=== PATIENT | female | born 1975 | race Native Hawaiian/Other Pacific Islander ===

== ENCOUNTER 2019-11-12 08:05 | Outpatient (CLI) | payer BC | END 2019-11-12 20:47 | disposition home or self-care (01) | LOC: NM 08:05 | DX: R10.12 Left upper quadrant pain (principal); R11.0 Nausea ==

== ENCOUNTER 2020-03-27 14:26 | Outpatient (CLI) | payer BC | END 2020-03-27 20:10 | disposition home or self-care (01) | LOC: MRI 14:26 | DX: N83.291 Other ovarian cyst, right side (principal) | CPT/HCPCS: A9576 ==

== ENCOUNTER 2020-11-06 08:30 | Outpatient (CLI) | payer BC | END 2020-11-06 21:47 | disposition home or self-care (01) | LOC: MAMMO 08:30 | PROVIDERS: ATTEND Obstetrics & Gynecology | DX: Z12.31 Encounter for screening mammogram for malignant neoplasm of breast (principal) ==

== ENCOUNTER 2020-11-21 11:01 | Outpatient (CLI) | payer BC | END 2020-11-21 19:27 | disposition home or self-care (01) | LOC: US 11:01 | PROVIDERS: ATTEND Obstetrics & Gynecology | DX: R92.2 Inconclusive mammogram (principal) ==

== ENCOUNTER 2021-04-28 08:04 | Outpatient (CLI) | payer BC | END 2021-04-28 20:31 | disposition home or self-care (01) | LOC: CT 08:04 | PROVIDERS: ATTEND Nurse Practitioner | DX: J32.0 Chronic maxillary sinusitis (principal); J32.2 Chronic ethmoidal sinusitis ==

== ENCOUNTER 2021-05-15 09:25 | Outpatient (CLI) | payer BC | END 2021-05-15 21:41 | disposition home or self-care (01) | LOC: CT 09:25 | PROVIDERS: ATTEND Nurse Practitioner Family | DX: R10.84 Generalized abdominal pain (principal); R14.0 Abdominal distension (gaseous); R11.0 Nausea | CPT/HCPCS: Q9963 ==

== ENCOUNTER 2022-07-26 09:05 | Outpatient (CLI) | payer BC | END 2022-07-26 19:34 | disposition home or self-care (01) | LOC: MAMMO 09:05 | PROVIDERS: ATTEND Obstetrics & Gynecology | DX: Z12.31 Encounter for screening mammogram for malignant neoplasm of breast (principal) ==

== ENCOUNTER 2023-01-05 09:58 | Outpatient (CLI) | payer BC | END 2023-01-05 20:37 | disposition home or self-care (01) | LOC: RAD 09:58 | PROVIDERS: ATTEND Internal Medicine | DX: Z78.0 Asymptomatic menopausal state (principal) ==